=== PATIENT | female | born 1980 | race Caucasian/White ===

== ENCOUNTER → 2020-09-10 | Outpatient (CLI) | payer BC, OTHER | LOC: KOH-I 09-04 15:00 | DX: R10.9 Unspecified abdominal pain (principal); Q61.02 Congenital multiple renal cysts | CPT/HCPCS: 76775 ==

== ENCOUNTER 2021-05-29 08:45 | Emergency (ER) | payer BC ==
[2021-05-29 09:50] LABS: HEMOGLOBIN 13.7 gm/dl (12.3-15.3); RED BLOOD COUNT 4.91 M/UL (4.00-5.10); WHITE BLOOD COUNT 9.3 K/UL (4.5-11.0)
[2021-05-29 11:54] LABS: BUN/CREATININE RATIO 25 (0-10)
== END 2021-05-29 15:35 | disposition home or self-care (01) ==
LOC: ER1 08:45
PROVIDERS: Physician Assistant
DX: E86.0 Dehydration (principal); R25.2 Cramp and spasm; Z20.822 Contact with and (suspected) exposure to COVID-19; E78.5 Hyperlipidemia, unspecified; E11.9 Type 2 diabetes mellitus without complications; I10 Essential (primary) hypertension; Z87.442 Personal history of urinary calculi
CPT/HCPCS: 80053; 81001; 82009; 82550; 82553; 82800; 83605; 83735; 83874; 84484; 85025; 87040; 99283; J7030; U0002